=== PATIENT | male | born 1985 | race Caucasian/White ===

== ENCOUNTER → 2017-12-20 | Day surgery (SDC) | payer OTHER ==
[~2017-12-20] MED LIST: CIPRO500 MG PO; DEXAMETHASONE SOD PHOS INJ 4 MG/ML VIAL ONE; FENTANYL CITRATE/PF 100MCG/2 ML INJ ONE; IOPAMIDOL 300MG/ML 50ML INFUS..BTL IV ONE; LEVOFLOXACIN 500MG/D5W 100ML 100 ML IV ONE; LIDOCAINE HCL 2% LOCAL INJ 5 ML SDV VIAL INJ ONE; MIDAZOLAM HCL 2 MG/2 ML VIAL ONE; ONDANSETRON HCL INJ 2 MG/ML VIAL ONE; OXYBUTYNIN CHLOR5 MG PO; PROPOFOL IV EMULSION 10 MG/ML 20 ML VIAL ONE; SEVOFLURANE INHAL SOLN 250 ML PEN BTL ONE
--- NOTE | 2017-12-20 14:02 | Operative Report ---
DATE OF PROCEDURE: December 20, 2017 PREOPERATIVE DIAGNOSIS: Left midurethral calculus 12 x 12 mm opposite L3-L4. POSTOPERATIVE DIAGNOSIS: Left midurethral calculus 12 x 12 mm opposite L3-L4. OPERATIONS PERFORMED: 1. Cystourethroscopy and left double-J urethral stent placement 6-[place] x 30 cm. 2. Left midurethral extracorporeal shockwave lithotripsy 3000 shocks delivered. ANESTHETIC: General. DETAILS OF PROCEDURE: Mr. Mederos is a 32-year-old male who was referred with a chief complaint of acute onset of severe pain on the left side. This patient went to one of the urgent cares, and a CT scan performed showed a large calculus about 12 x 12 mm with hydronephrosis proximal and opposite L3-L4. This patient was placed on the table in the lithotomy position and was prepped and draped in a sterile manner after satisfactory anesthesia. A number 23-[place] cystoscope was used but could not be passed through the urethra because of the tight urethral meatus. The urethra was dilated with the Tiffanie sound up to number 26 [place]. A number 23-[place] cystoscope was used and passed readily through the urethral meatus and the urethra through the prostatic fossa to the bladder. A 0.38 flexible-tipped Glidewire was then passed through the working channel of the cystoscope through the left ureteral orifice all the way up to the renal pelvis under direct and fluoroscopic control. A 6-[place] x 30-cm double-J ureteral stent was then threaded over the guide wire through the cystoscope, through the left ureteral orifice and then, under direct and fluoroscopic control, was passed all the way up to the renal pelvis, leaving the upper end of the stent in the renal pelvis and the lower end of the stent in the bladder. The guide wire was removed. The bladder was drained, then the cystoscope removed. This patient was then placed on the table in the supine position, and the stone was brought into position between F1 and F2. The lithotripsy was then started, starting at 2 kV and slowly and gradually increased to 7 kV. Observation of the stone pulverization was done at 250 shocks. At 3000 shocks, the machine was shut down and most of the stone had pulverized. Patient tolerated the procedure well and was taken to the recovery room in satisfactory condition. Plans for this patient are to be placed on Cipro 500 mg one daily for one month. Ultracet tablet one every 4 to 6 hours p.r.n. and was given 50. Ditropan 5 mg one three times a day for the bladder spasms. He is to return to the office in one week, when at that time a KUB will be performed. Job#: [id number] EV
== END | disposition home or self-care (01) ==
LOC: OR 09:48
PROVIDERS: ATTEND Specialist
DX: N13.2 Hydronephrosis with renal and ureteral calculous obstruction (principal); F17.210 Nicotine dependence, cigarettes, uncomplicated
CPT/HCPCS: 50590; 52332; C2617; J1100; J1956; J2001; J2250; J2405; Q9967

== ENCOUNTER → 2017-12-27 | Day surgery (SDC) | payer OTHER ==
[~2017-12-27] MED LIST changes: -IOPAMIDOL 300MG/ML 50ML INFUS..BTL IV ONE; -LIDOCAINE HCL 2% LOCAL INJ 5 ML SDV VIAL INJ ONE; -PROPOFOL IV EMULSION 10 MG/ML 20 ML VIAL ONE
--- NOTE | 2017-12-27 15:24 | Operative Report ---
DATE OF PROCEDURE: December 27, 2017 PREOPERATIVE DIAGNOSES 1. Large mid-ureteral calculus opposite L3-L4, 12 x 12 mm. 2. Left double-J ureteral stent. POSTOPERATIVE DIAGNOSES 1. Large mid-ureteral calculus opposite L3-L4, 12 x 12 mm. 2. Left double-J ureteral stent. OPERATION: Left mid-ureteral extracorporeal shock-wave lithotripsy. NURSERY ATTENDANT: Dr. Churchill ANESTHETIC: General. INDICATIONS: Mr. Mederos is a 32-year-old male who presented with acute onset of severe pain on the left side. Workup showed that he has a large 12 x 12 mm calculus opposite L3-L4 with hydronephrosis. He underwent stent placement and ESWL about a week ago. He presented at this time when the stone has not changed any. He was brought for another ESWL at this time. DESCRIPTION OF PROCEDURE: This patient was placed on the table in the supine position, and the stone was brought into position between F1 and F2 of the fluoroscopic monitor. The lithotripsy was started, starting at 3 kV and slowly and gradually increased to 7 kV. Observation of the stone pulverization was done at 250 shocks intermittently. At 4,000 shocks, it was felt that the stone has almost completely fragmented, except there was a piece of the stone about 4-5 mm and about 2-3 mm in width, still relatively dense. At this point, the lithotripsy was stopped. The patient tolerated the procedure well and was taken to the recovery room in satisfactory condition. Plan for this patient is to return to the office in 2 weeks when at that time a KUB will be performed. He was instructed on drinking fluids and increasing his fluid intake to hopefully push the stones and the stone fragments out. DISCHARGE MEDICATIONS 1. Cipro 500 mg once a day. 2. Ultracet tablet 1 every 4-6 hours p.r.n. and was given 50. 3. Ditropan 5 mg one 3 times a day. Job#: [id number]
== END | disposition home or self-care (01) ==
LOC: OR 08:32
PROVIDERS: ATTEND Specialist
DX: N13.2 Hydronephrosis with renal and ureteral calculous obstruction (principal); Z96.0 Presence of urogenital implants; F17.200 Nicotine dependence, unspecified, uncomplicated
CPT/HCPCS: 50590; J1100; J1956; J2250; J2405

== ENCOUNTER → 2018-02-07 | Day surgery (SDC) | payer OTHER ==
[~2018-02-07] MED LIST changes: +GENTAMICIN 120MG/NS 100ML 100 ML ONE; +IOPAMIDOL 300MG/ML 50ML INFUS..BTL IV ONE; -LEVOFLOXACIN 500MG/D5W 100ML 100 ML IV ONE; +LIDOCAINE HCL 2% LOCAL INJ 5 ML SDV VIAL INJ ONE; +PROPOFOL IV EMULSION 10 MG/ML 20 ML VIAL ONE
--- NOTE | 2018-02-07 13:45 | Operative Report ---
DATE OF PROCEDURE: February 07, 2018 PREOPERATIVE DIAGNOSES 1. Left double-J stent 6 x 30. 2. History of left urethroscopy with laser lithotripsy with complete pulverization and passage of the stone fragments. POSTOPERATIVE DIAGNOSES 1. Left double-J stent 6 x 30. 1. History of left urethroscopy with laser lithotripsy with complete pulverization and passage of the stone fragments. OPERATIONS PERFORMED 1. Cystourethroscopy and stent removal. 2. Left retrograde pyelogram. MAGNETIC TAPE TYPEWRITER OPERATOR: Dr. Tolentino. ANESTHETIC: General. Mr. Mederos is a 32-year-old male who presented with a chief complaint of acute onset of severe pain and was noted to have a 12 to 13 mm calculus at the mid ureter on the left side. He underwent 2 lithotripsies with partial fragmentation and passage of the stone. Following the lithotripsy, there was a large stone fragment about 8 x 8 mm. He underwent ureteropyeloscopy with laser lithotripsy with complete pulverization of the stone and stent placement. He presented at this time for the stent removal when KUB confirmed that all the stone fragments have been gone. This patient was placed on the table in the lithotomy position and was prepped and draped in a sterile manner after satisfactory anesthesia. A number 23-[place] cystoscope was used, and cystourethroscopy was performed and the tail end of the stent was seen protruding from the left ureteral orifice, which is normal. Under direct vision and fluoroscopic control, the tail end of the stent was grasped and removed completely without difficulty under fluoroscopic control. A left retrograde pyelogram was then performed, and there was no evidence of stones in the ureter. The bladder was drained, cystoscope removed and patient taken to the recovery room in satisfactory condition. Plans for this patient are to return to the office in 3 weeks when at that time complete stone urological workup will be done. Job#: [id number] EV
[2018-02-07 15:39] VITALS: BP 133/86
== END | disposition home or self-care (01) ==
LOC: OR 10:16
PROVIDERS: ATTEND Specialist
DX: Z46.6 Encounter for fitting and adjustment of urinary device (principal); Z87.442 Personal history of urinary calculi; I49.9 Cardiac arrhythmia, unspecified
CPT/HCPCS: 52005; 74420; C1758; J1100; J1580; J2001; J2250; J2405; Q9967